=== PATIENT | female | born 1995 | race Asian ===

== ENCOUNTER 2016-07-29 02:55 | Emergency (ER) | payer OTHER ==
[~2016-07-29] VITALS: Ht 165.1 cm; Wt 108.9 kg
[2016-07-29 04:00] VITALS: BP 143/81; TEMP 98.5
== END 2016-07-29 04:00 | disposition home or self-care (01) ==
LOC: ED 02:55
DX: R51 Headache (principal)
CPT/HCPCS: 96372; 99283; J2175; J2550

== ENCOUNTER 2016-09-11 13:08 | Emergency (ER) | payer OTHER ==
[~2016-09-11] VITALS: Ht 165.1 cm; Wt 104.3 kg
[2016-09-11 13:20] VITALS: TEMP 98.8
[2016-09-11 14:49] VITALS: BP 148/82
== END 2016-09-11 14:49 | disposition home or self-care (01) ==
LOC: ED 13:08
DX: K21.9 Gastro-esophageal reflux disease without esophagitis (principal); A08.8 Other specified intestinal infections
CPT/HCPCS: 99282

== ENCOUNTER 2016-09-12 10:44 | Emergency (ER) | payer OTHER ==
[~2016-09-12] VITALS: Ht 165.1 cm; Wt 104.3 kg
[2016-09-12 11:00] VITALS: TEMP 98
[2016-09-12 12:01] LABS: PLATELET COUNT 350 K/uL (152-353)
[2016-09-12 12:18] LABS: POTASSIUM 3.2 mmol/L (3.6-5.2); SODIUM 139 mmol/L (136-145)
[2016-09-12 12:45] VITALS: BP 128/78
== END 2016-09-12 12:55 | disposition home or self-care (01) ==
LOC: ED 10:44
DX: K29.60 Other gastritis without bleeding (principal); B96.81 Helicobacter pylori [H. pylori] as the cause of diseases classified elsewhere; A08.8 Other specified intestinal infections; F12.10 Cannabis abuse, uncomplicated
CPT/HCPCS: 36415; 80053; 80307; 81000; 85027; 86318; 96360; 96361; 99284; G0479

== ENCOUNTER 2018-05-11 15:04 | Emergency (ER) | payer OTHER ==
[~2018-05-11] VITALS: Ht 162.6 cm; Wt 117.9 kg
[2018-05-11 15:15] VITALS: BP 137/86; TEMP 98
== END 2018-05-11 17:26 | disposition home or self-care (01) ==
LOC: EDP 15:04
DX: M54.89 Other dorsalgia (principal); M62.830 Muscle spasm of back
CPT/HCPCS: 96372; 99282; J1170

== ENCOUNTER 2018-08-01 11:52 | Emergency (ER) | payer OTHER ==
[~2018-08-01] VITALS: Ht 162.6 cm; Wt 113.9 kg
[2018-08-01 13:30] VITALS: BP 131/81; TEMP 98.3
== END 2018-08-01 13:30 | disposition home or self-care (01) ==
LOC: ED 11:52
DX: J03.90 Acute tonsillitis, unspecified (principal)
CPT/HCPCS: 86308; 87651; 99283

== ENCOUNTER 2018-09-26 18:53 | Emergency (ER) | payer OTHER ==
[~2018-09-26] VITALS: Ht 162.6 cm; Wt 113.9 kg
[2018-09-26 19:56] VITALS: BP 142/84; TEMP 98.8
== END 2018-09-26 19:56 | disposition home or self-care (01) ==
LOC: ED 18:53
DX: R21 Rash and other nonspecific skin eruption (principal)
CPT/HCPCS: 96372; 99283; J2930

== ENCOUNTER 2018-12-04 15:18 | Emergency (ER) | payer OTHER ==
[~2018-12-04] VITALS: Ht 162.6 cm; Wt 115.2 kg
[2018-12-04 15:33] VITALS: TEMP 98.8
[2018-12-04 16:18] VITALS: BP 118/67
== END 2018-12-04 16:18 | disposition home or self-care (01) ==
LOC: ED 15:18
DX: L30.9 Dermatitis, unspecified (principal)
CPT/HCPCS: 96372; 99282; J2930

== ENCOUNTER 2019-02-06 11:07 | Emergency (ER) | payer OTHER ==
[~2019-02-06] VITALS: Ht 162.6 cm; Wt 114.3 kg
[2019-02-06 11:18] VITALS: TEMP 97.9
[2019-02-06 11:54] VITALS: BP 152/99
== END 2019-02-06 11:54 | disposition home or self-care (01) ==
LOC: ED 11:07
DX: R21 Rash and other nonspecific skin eruption (principal)
CPT/HCPCS: 99282

== ENCOUNTER 2019-05-11 11:42 | Emergency (ER) | payer OTHER ==
[~2019-05-11] VITALS: Ht 162.6 cm; Wt 98.9 kg
[2019-05-11 12:50] LABS: PLATELET COUNT 294 K/uL (152-353)
[2019-05-11 13:00] LABS: POTASSIUM 3.3 mmol/L (3.6-5.2)
[2019-05-11 14:42] VITALS: BP 136/72; TEMP 98.5
== END 2019-05-11 14:43 | disposition home or self-care (01) ==
LOC: ED 11:42
PROVIDERS: Family Medicine
DX: J32.9 Chronic sinusitis, unspecified (principal); E87.6 Hypokalemia; J02.9 Acute pharyngitis, unspecified; R51 Headache; F17.210 Nicotine dependence, cigarettes, uncomplicated
CPT/HCPCS: 80053; 81000; 81025; 85027; 87502; 87651; 96372; 99283; J1885

== ENCOUNTER 2019-12-11 17:18 | Emergency (ER) | payer OTHER ==
[~2019-12-11] VITALS: Ht 162.6 cm; Wt 113.4 kg
[2019-12-11 17:47] VITALS: TEMP 99.1
[2019-12-11 18:34] VITALS: BP 145/80
== END 2019-12-11 18:35 | disposition home or self-care (01) ==
LOC: ED 17:18
DX: J32.8 Other chronic sinusitis (principal); G44.209 Tension-type headache, unspecified, not intractable; F17.210 Nicotine dependence, cigarettes, uncomplicated
CPT/HCPCS: 96372; 99282; J1885

== ENCOUNTER 2020-01-25 01:33 | Emergency (ER) | payer OTHER ==
[~2020-01-25] VITALS: Ht 162.6 cm; Wt 117.9 kg
[2020-01-25 01:40] VITALS: BP 147/90; TEMP 98.1
== END 2020-01-25 02:17 | disposition home or self-care (01) ==
LOC: ED 01:33
DX: K21.9 Gastro-esophageal reflux disease without esophagitis (principal); S13.4XXA Sprain of ligaments of cervical spine, initial encounter
CPT/HCPCS: 99282

== ENCOUNTER 2020-06-22 18:32 | Emergency (ER) | payer OTHER ==
[~2020-06-22] VITALS: Ht 162.6 cm; Wt 117.9 kg
[2020-06-22 19:28] LABS: PLATELET COUNT 283 K/uL (152-353)
[2020-06-22 19:41] LABS: POTASSIUM 3.9 mmol/L (3.6-5.2)
[2020-06-22 21:00] VITALS: BP 118/72; TEMP 98.3
== END 2020-06-22 21:00 | disposition home or self-care (01) ==
LOC: ED 18:32
PROVIDERS: Family Medicine
DX: G93.2 Benign intracranial hypertension (principal); R53.83 Other fatigue
CPT/HCPCS: 36415; 80053; 81000; 81025; 85008; 85027; 99283

== ENCOUNTER 2020-10-20 17:51 | Emergency (ER) | payer OTHER ==
[~2020-10-20] VITALS: Ht 162.6 cm; Wt 117.9 kg
[2020-10-20 17:56] VITALS: TEMP 99.3
[2020-10-20 19:02] VITALS: BP 140/94
== END 2020-10-20 19:07 | disposition home or self-care (01) ==
LOC: ED 17:51
DX: M94.0 Chondrocostal junction syndrome [Tietze] (principal)
CPT/HCPCS: 93005; 99282

== ENCOUNTER 2021-04-25 06:55 | Emergency (ER) | payer OTHER ==
[~2021-04-25] VITALS: Ht 165.1 cm; Wt 117.9 kg
[2021-04-25 08:42] VITALS: BP 138/85; TEMP 99.2
== END 2021-04-25 08:42 | disposition home or self-care (01) ==
LOC: ED 06:55
DX: U07.1 COVID-19 (principal)
CPT/HCPCS: 87502; 87635; 99283; U0003

== ENCOUNTER 2022-07-06 08:28 | Emergency (ER) | payer OTHER ==
[~2022-07-06] VITALS: Ht 165.1 cm; Wt 95.3 kg
[2022-07-06 08:35] VITALS: BP 129/78; TEMP 97.3
[2022-07-06 09:41] LABS: PLATELET COUNT 309 K/uL (152-353)
[2022-07-06 09:42] LABS: POTASSIUM 3.4 mmol/L (3.6-5.2)
== END 2022-07-06 10:32 | disposition home or self-care (01) ==
LOC: ED 08:28
PROVIDERS: Family Medicine
DX: K11.20 Sialoadenitis, unspecified (principal); D50.8 Other iron deficiency anemias; E87.6 Hypokalemia; F17.210 Nicotine dependence, cigarettes, uncomplicated
CPT/HCPCS: 80053; 82150; 85008; 85027; 96372; 99283; J1885; J2930

== ENCOUNTER 2022-08-20 20:12 | Emergency (ER) | payer OTHER ==
[~2022-08-20] VITALS: Ht 165.1 cm; Wt 115.7 kg
[2022-08-20 20:19] VITALS: BP 124/70; TEMP 99
== END 2022-08-20 21:45 | disposition home or self-care (01) ==
LOC: ED 20:12
DX: J10.1 Influenza due to other identified influenza virus with other respiratory manifestations (principal); F17.210 Nicotine dependence, cigarettes, uncomplicated
CPT/HCPCS: 81025; 87502; 87635; 96372; 99283; J1885; U0003

== ENCOUNTER 2022-08-26 08:01 | Emergency (ER) | payer OTHER ==
[~2022-08-26] VITALS: Ht 165.1 cm; Wt 117.9 kg
[2022-08-26 08:10] VITALS: BP 119/82; TEMP 98.7
[2022-08-26 09:05] LABS: PLATELET COUNT 239 K/uL (152-353)
== END 2022-08-26 10:02 | disposition home or self-care (01) ==
LOC: ED 08:01
PROVIDERS: Family Medicine
DX: J21.9 Acute bronchiolitis, unspecified (principal); J10.1 Influenza due to other identified influenza virus with other respiratory manifestations; F17.210 Nicotine dependence, cigarettes, uncomplicated
CPT/HCPCS: 36415; 85027; 94664; 96372; 99283; J2930